=== PATIENT | male | born 1945 ===

== ENCOUNTER 2024-10-21 17:15 | Emergency (ER) | payer OTHER ==
[~2024-10-21] VITALS: Ht 157.5 cm; Wt 73.0 kg
[2024-10-21 18:31] VITALS: TEMP 98.6
[2024-10-21 18:55] LABS: BASOPHILS % (AUTO) 0.5 % (0.0-2.0); EOSINOPHILS % (AUTO) 1.4 % (1.0-6.0); HEMATOCRIT 46.9 % (41-53); HEMOGLOBIN 15.5 g/dL (13.5-17.5); LYMPHOCYTES # (AUTO) 1.4 K/uL (1.0-4.8); LYMPHOCYTES % (AUTO) 15.6 % (22.0-44.0); MEAN CORPUSCULAR HEMOGLOBIN 27.6 pg (26.0-34.0); MEAN CORPUSCULAR VOLUME 84 fL (80-100); MONOCYTES # (AUTO) 0.8 K/uL (0.1-1.0); MONOCYTES % (AUTO) 9.2 % (2.0-9.0); NEUTROPHILS # (AUTO) 6.4 K/uL (1.8-7.7); NEUTROPHILS % (AUTO) 73.3 % (40.0-70.0); PLATELET COUNT (AUTO) 205 K/uL (150-450); RED CELL DISTRIBUTION WIDTH 14.9 % (11.5-14.5); WHITE BLOOD COUNT (AUTO) 8.7 K/uL (4.5-11.0)
[2024-10-21 19:04] LABS: ANION GAP 13 mmol/L (8-16); CALCIUM, TOTAL 8.5 mg/dL (8.8-10.5); CARBON DIOXIDE 21 mmol/L (22-29); CHLORIDE 104 mmol/L (98-107); CREATININE 0.76 mg/dL (0.60-1.30); GLOMERULAR FILTR. RATE CALC > 60 mL/min (>60); GLUCOSE,RANDOM 106 mg/dL (70-110); POTASSIUM 3.9 mmol/L (3.5-5.1); SODIUM SERUM 138 mmol/L (136-145); UREA NITROGEN, BLOOD 15 mg/dL (7-18)
[2024-10-21 19:09] LABS: B-TYPE NATRIURETIC PEPTIDE 27 pg/mL (0-100)
[2024-10-21 19:11] LABS: ALANINE AMINOTRANSFERASE 38 U/L (12-78); ALBUMIN 3.4 g/dL (3.4-5.0); ALKALINE PHOSPHATASE 93 U/L (46-116); ASPARTATE AMINOTRANSFERASE 29 U/L (15-37); BILIRUBIN,TOTAL 0.3 mg/dL (0.1-1.0); CREATINE KINASE, TOTAL ONLY 68 U/L (39-308); TOTAL PROTEIN, SERUM 6.5 g/dL (6.4-8.2)
[2024-10-21 19:12] LABS: TROPONIN I-HIGH SENSITIVITY 37 ng/L (<76)
[2024-10-21 19:20] LABS: GLUCOMETER DEV NAME(LOC) ER.7; GLUCOSE,POINT OF CARE 190 MG/DL (70-110)
[2024-10-21] MEDS: CefTRIAXone 1 GM/DEXTROSE 50 ML IV ONE (19:51)
[2024-10-21] MEDS: AZITHROMYCIN 500 MG/NS 250 ML IV ONE (19:52)
[2024-10-21 20:11] LABS: COVID AG,FIA SOURCE NASAL SWAB
[2024-10-21 20:13] VITALS: BP 145/75; PULSE 74; RESP 20; O2SAT 94
[2024-10-21 20:43] LABS: INFLUENZA TYPE A NEGATIVE FOR TYPE A (NEGATIVE); INFLUENZA TYPE B NEGATIVE FOR TYPE B (NEGATIVE); SARS-COV2 (COVID) ANTIGEN,FIA Negative (Negative)
== END 2024-10-21 21:37 | disposition short-term general hospital (02) ==
LOC: EMS 17:15
DX: J18.9 Pneumonia, unspecified organism (principal); Z20.822 Contact with and (suspected) exposure to COVID-19
CPT/HCPCS: 99285; 96365; 71045; 87426; 80048; 80076; 82550; 82962; 83880; 84484; 85025; 87804; 36415; 93005; 96368; J0456; J0696